=== PATIENT | female | born 1970 | race Caucasian/White ===

== ENCOUNTER 2023-11-18 23:00 | Emergency (ER) | payer OTHER ==
[2023-11-18] MEDS: Ketorolac 30 MG/ML SDV IVPUSH ONE (23:39)
[2023-11-18] MEDS: Ondansetron 4 MG/2 ML SDV IVPUSH ONE (23:39)
[2023-11-18] MEDS: cloNIDine 0.1 MG Tab PO ONE (23:40)
[2023-11-18 23:47] LABS: BASOPHILS ABSOLUTE AUTO 0.1 x10-3/uL (0.0-0.1); BASOPHILS PERCENT AUTO 0.9 % (0.2-1.5); EOSINOPHILS ABSOLUTE AUTO 0.1 x10-3/uL (0.0-0.8); EOSINOPHILS PERCENT AUTO 1.9 % (0.6-8.1); HEMATOCRIT 35.3 % (34.2-48.2); HEMOGLOBIN 11.8 g/dL (11.4-15.5); LYMPHOCYTES PERCENT AUTO 39.2 % (18.4-52.1); MEAN CORPUSCULAR HEMOGLOBIN 28.3 pg (23.9-33.9); MEAN CORPUSCULAR HGB CONC 33.3 g/dL (31.9-34.8); MEAN CORPUSCULAR VOLUME 84.9 fL (76.7-100.5); MEAN PLATELET VOLUME 7.6 fL (7.1-12.4); MONOCYTES ABSOLUTE AUTO 0.5 x10-3/uL (0.3-1.0); MONOCYTES PERCENT AUTO 7.2 % (4.4-15.7); NEUTROPHILS ABSOLUTE AUTO 3.9 x10-3/uL (1.5-6.3); NEUTROPHILS PERCENT AUTO 50.8 % (30.8-76.2); PLATELET COUNT,PLT 424 x10(3)uL (151-488); RED BLOOD CELL COUNT 4.16 x10(6)uL (3.60-5.20); RED CELL DISTRIBUTION WIDTH 13.5 % (12.3-16.5); WHITE BLOOD CELL COUNT,WBC 7.6 x10-3/uL (3.0-10.3)
[2023-11-18 23:51] LABS: BLOOD UREA NITROGEN,BUN 16 mg/dL (7-18); BUN/CREATININE RATIO 17.8 (9-20); CALCIUM 9.6 mg/dL (8.6-10.2); CARBON DIOXIDE,CO2 28 mmol/L (21-32); CHLORIDE,CL 103 mmol/L (100-110); CREATININE 0.9 mg/dL (0.55-1.02); EST CRCL DRUG DOSING (CG) 67.67 mL/min; ESTIMATED GFR 76 mL/min (>60); GLUCOSE RANDOM 122 mg/dL (80-116); POTASSIUM,K 3.9 mmol/L (3.5-5.3); SODIUM,NA 139 mmol/L (135-145)
[2023-11-19] MEDS ORDERED: Prochlorperazine 10 MG in Sodium Chloride 0.9% 50 ML IV ONE (00:13)
[2023-11-19] MEDS: Prochlorperazine 10 MG/2 ML SDV IVPUSH ONE (00:20)
[2023-11-19] MEDS: fentaNYL 100 MCG/2 ML SDV IVPUSH ONE (00:20)
== END 2023-11-19 01:03 | disposition home or self-care (01) ==
LOC: FB.ED 23:00
DX: G43.909 Migraine, unspecified, not intractable, without status migrainosus (principal)
CPT/HCPCS: 70450; 80048; 84484; 85025; 93005; 96374; 96375; 99284; A9270; J0780; J1885; J2405; J3010; 36415; 93010; 99283